=== PATIENT | male | born 1935 | race Caucasian/White ===

== ENCOUNTER 2017-01-27 15:00 | Outpatient (CLI) | payer MEDICARE, OTHER ==
--- NOTE | 2017-01-27 16:33 | Ultrasound Report ---
EXAM: RENAL ULTRASOUND EXAM DATE: 01/27/2017 04:02 PM. CLINICAL HISTORY: ASSESS LESION DEMONSTRATED BY NM STUDY. COMPARISON: CT scan dated 07/20/2011 and ultrasound dated 07/13/2011. TECHNIQUE: Real-time scanning was performed with static images obtained. FINDINGS: Right Kidney: 12.1 x 4.3 x 5.9 cm. Diffusely echogenic renal parenchyma, probably senescent. No hydro nephrosis. Upper pole cyst measuring 1.1 x 0.8 x 1.0 cm. Lower pole cyst measuring 3.0 x 2.3 x 3.0 cm . Left Kidney: 12.5 x 6.1 x 5.9 cm. Diffusely echogenic renal parenchyma, probably senescent. No hydron ephrosis. Upper pole solid lesion measuring 4.2 x 3.7 x 4.3 cm, not significantly changed since 2011. Irregular complex lower pole cyst measuring 1.4 x 1.1 x 1.2 cm. Bladder: Bilateral jets seen. The prevoid bladder volume was 98 cc. The postvoid bladder volume was 3 0 cc. Prominent heterogeneous prostate measuring 5.7 x 4.1 x 4.9 cm. Other: Trace free fluid in right upper quadrant, a nonspecific finding. IMPRESSION: 1. No significant interval change of left renal mass. 2. Senescent changes of both kidneys. Small cysts within both kidneys. 3. Moderate postvoid bladder residual, prominent prostate. [facility] Referring Provider Line: [phone] SITE ID: [id number]
== END 2017-01-27 15:01 | disposition home or self-care (01) ==
LOC: DI 15:00
PROVIDERS: ATTEND Internal Medicine Hematology & Oncology
DX: N28.9 Disorder of kidney and ureter, unspecified (principal)
CPT/HCPCS: 76770

== ENCOUNTER 2017-02-04 08:00 | Outpatient (CLI) | payer MEDICARE, OTHER ==
[2017-02-04 16:41] LABS: BASOPHILS # (AUTO) 0.1 10^3/uL (0.0-0.1); BASOPHILS % (AUTO) 0.9 %; EOSINOPHILS # (AUTO) 0.1 10^3/uL (0.0-0.7); HCT - HEMATOCRIT 37.6 % (42.0-52.0); HGB - HEMOGLOBIN 12.5 g/dL (14.0-18.0); LYMPHOCYTES % (AUTO) 14.2 %; MEAN CORPUSCULAR HEMOGLOBIN 31.1 pg (27.0-31.0); MEAN CORPUSCULAR HGB CONC 33.2 g/dL (32.0-36.0); MEAN CORPUSCULAR VOLUME 93.7 fL (80.0-94.0); MEAN PLATELET VOLUME 8.7 fL (7.4-11.4); MONOCYTES # (AUTO) 0.6 10^3/uL (0.0-1.0); MONOCYTES % (AUTO) 8.8 %; NEUTROPHILS % (AUTO) 75.1 %; RED BLOOD COUNT 4.01 10^6/uL (4.70-6.10); RED CELL DISTRIBUTION WIDTH 15.8 % (12.0-15.0); UNCORRECTED WHITE BLOOD COUNT 6.7 x10^3/uL; WHITE BLOOD COUNT 6.7 x10^3/uL (4.8-10.8)
[2017-02-04 16:54] LABS: INR 4.2 (0.8-1.2); PT - PROTHROMBIN TIME 48.2 secs (9.9-12.6)
[2017-02-04 16:56] LABS: CALCIUM 8.9 mg/dL (8.5-10.3); CREATININE 0.9 mg/dL (0.6-1.2)
[2017-02-04 17:01] LABS: PARTIAL THROMBOPLASTIN TIME 40.2 secs (24.9-33.3)
== END 2017-02-04 08:01 | disposition home or self-care (01) ==
LOC: LAB 08:00
PROVIDERS: ATTEND Specialist
DX: K92.1 Melena (principal)
CPT/HCPCS: 36415; 80048; 85025; 85610; 85730

== ENCOUNTER 2017-02-04 16:07 | Outpatient (CLI) | payer MEDICARE, OTHER | END 2017-02-04 16:08 | disposition home or self-care (01) | LOC: LAB 16:07 | PROVIDERS: ATTEND Specialist | DX: K92.1 Melena (principal) ==

== ENCOUNTER 2017-02-23 06:15 | Emergency (ER) | payer MEDICARE, OTHER ==
[2017-02-23] MEDS ORDERED: OXYMETAZOLINE NASAL SPRAY NAS STA (07:06)
--- NOTE | 2017-02-23 07:08 | ED Physician Documentation ---
PD HPI HEENT - Stated complaint Stated Complaint: NOSE BLEED - Chief complaint Chief Complaint: Heent - History obtained from History obtained from: Patient - History of Present Illness Timing - onset: Today (when awoke) Timing - duration: Hours (1) Timing - details: Abrupt onset, Still present Location: Nose Associated symptoms: No: Fever, Congestion, Rhinorrhea, Swollen nodes Similar symptoms before: No diagnosis (had brief bleeding a few days ago, then stopped. No recent URI symptoms.) Recently seen: Not recently seen Review of Systems Constitutional: denies: Fever, Chills Nose: denies: Rhinorrhea / runny nose, Congestion Throat: denies: Sore throat Respiratory: denies: Dyspnea, Cough PD PAST MEDICAL HISTORY - Past Medical History Cardiovascular: Hypertension, High cholesterol, Deep vein thrombosis GI: GERD Musculoskeletal: Gout - Past Surgical History Past Surgical History: Yes Ortho: Carpal Tunnel surgery - Present Medications Home Medications: Ambulatory Orders Medication Instructions Recorded Confirmed Doxazosin [Cardura] 8 mg PO DAILY 07/16/14 02/23/17 Losartan Potassium 50 mg PO BID 07/16/14 02/23/17 Simvastatin 40 mg PO DAILY 07/16/14 02/23/17 Warfarin Sodium [Jantoven] 5 mg PO DAILY 07/16/14 02/23/17 raNITIdine [Zantac] 300 mg PO DAILY 07/16/14 02/23/17 Furosemide 20 mg PO DAILY 02/23/17 02/23/17 Levothyroxine [Synthroid] 175 mcg PO QDAC 02/23/17 02/23/17 - Allergies Allergies/Adverse Reactions: Allergies Allergy/AdvReac Type Severity Reaction Status Date / Time No Known Drug Allergies Allergy Verified 02/23/17 06:37 - Social History Does the pt smoke?: Yes Smoking Status: Current every day smoker Does the pt drink ETOH?: Yes Does the pt have substance abuse?: No - Immunizations Immunizations are current?: Yes - POLST Patient has POLST: No PD ED PE NORMAL - Vitals Vital signs reviewed: Yes - General General: Alert and oriented X 3, No acute distress, Well developed/nourished - HEENT HEENT: Pharynx benign, Other (mild bleeding right nostril even with pinching. ) - Neck Neck: Supple, no meningeal sign, No adenopathy - Derm Derm: Normal color, Warm and dry - Neuro Neuro: Alert and oriented X 3, No motor deficit, Normal speech Results - Vitals Vitals: Oxygen O2 Source Room air - Labs Labs: Laboratory Tests 02/23/17 07:14 Whole Blood INR 3.3 H Procedures - Epistaxis Site: Right, Anterior Preparation: Clots removed, Afrin, Lidocaine, Clamp / pressure applied Treatment: Silver Nitrate, Packing inserted Other: Observed - no bleeding, Pt tolerated well, O2 sat WNL PD MEDICAL DECISION MAKING - ED course Complexity details: re-evaluated patient (no further bleeding, and he feels okay. ), d/w patient Departure - Departure Disposition: Home, Self Care Clinical Impression: Anticoagulant long-term use, Right-sided nosebleed Condition: Stable Record reviewed to determine appropriate education?: Yes Instructions: ED Nasal Packing Anterior Removable Follow-Up: Melodie Rollins PA-C [Primary Care Provider] - Comments: Leave the packing in the nostril through the day today and into tomorrow if you can. Remove it gently by pulling easily. Stay well-hydrated. If there is some bleeding, then apply the nose clamp while still keeping the packing in. Return if bleeding despite that. Hold your Coumadin dose tonight and then continue normally after that. Discharge Date/Time: 02/23/17 08:52
[2017-02-23] MEDS ORDERED: OXYMETAZOLINE NASAL SPRAY NAS ONE (07:13)
[2017-02-23 08:52] VITALS: BP 138/71
== END 2017-02-23 08:52 | disposition home or self-care (01) ==
LOC: ED 06:15
DX: R04.0 Epistaxis (principal); I10 Essential (primary) hypertension; F17.200 Nicotine dependence, unspecified, uncomplicated; Z86.718 Personal history of other venous thrombosis and embolism; Z79.01 Long term (current) use of anticoagulants
CPT/HCPCS: 30901; 85610; 99282; 99283; A9270

== ENCOUNTER 2017-03-13 08:16 | Day surgery (SDC) | payer MEDICARE, OTHER ==
[2017-03-13] MEDS ORDERED: LACTATED RINGERS 1,000 ML IV ONE (08:31)
[2017-03-13] MEDS ORDERED: MIDAZOLAM 2 MG/2 ML VIAL IVP ONE (10:32)
[2017-03-13] MEDS ORDERED: fentaNYL 100 MCG/2 ML VIAL IVP ONE (10:32)
[2017-03-13 11:38] VITALS: BP 105/58
== END 2017-03-13 08:17 | disposition home or self-care (01) ==
LOC: SDS 08:16
PROVIDERS: ATTEND Surgery
PROC: 0DBH8ZX Excision of Cecum, Via Natural or Artificial Opening Endoscopic, Diagnostic (ICD-10-PCS; principal; 2017-03-13 09:30)
DX: K62.5 Hemorrhage of anus and rectum (principal); D12.0 Benign neoplasm of cecum; K57.90 Diverticulosis of intestine, part unspecified, without perforation or abscess without bleeding; Z95.0 Presence of cardiac pacemaker; Z79.01 Long term (current) use of anticoagulants; Z86.73 Personal history of transient ischemic attack (TIA), and cerebral infarction without residual deficits; F17.210 Nicotine dependence, cigarettes, uncomplicated; E78.00 Pure hypercholesterolemia, unspecified
CPT/HCPCS: 45380; J7120; 88305

== ENCOUNTER 2017-03-29 13:07 | Emergency (ER) | payer MEDICARE, OTHER ==
--- NOTE | 2017-03-29 14:14 | ED Physician Documentation ---
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 He has had intermittent abdominal pain in the upper abdomen with a bulge that really was not bothering him until it became severe at 11 AM this morning not associated with vomiting or difficulty with bowel movements.) Review of Systems Ten Systems: 10 systems reviewed and negative Constitutional: denies: Fever, Chills Cardiac: denies: Chest pain / pressure, Palpitations Respiratory: denies: Dyspnea, Cough PD PAST MEDICAL HISTORY - Past Medical History Cardiovascular: Hypertension, High cholesterol, Deep vein thrombosis, Other Respiratory: None Endocrine/Autoimmune: Other GI: GERD, Hemorrhoids : None HEENT: Other Psych: Depression Musculoskeletal: Gout Derm: None - Past Surgical History Past Surgical History: Yes General: Colonoscopy Ortho: Carpal Tunnel surgery - Present Medications Home Medications: Ambulatory Orders Medication Instructions Recorded Confirmed Doxazosin [Cardura] 8 mg PO DAILY 07/16/14 03/29/17 Losartan Potassium 50 mg PO BID 07/16/14 03/29/17 Simvastatin 40 mg PO DAILY 07/16/14 03/29/17 Warfarin Sodium [Jantoven] 5 mg PO DAILY 07/16/14 03/29/17 raNITIdine [Zantac] 300 mg PO DAILY 07/16/14 03/29/17 Furosemide 20 mg PO DAILY 02/23/17 03/29/17 Levothyroxine [Synthroid] 175 mcg PO QDAC 02/23/17 03/29/17 Warfarin [Coumadin] 2.5 mg PO 1400 03/10/17 03/29/17 - Allergies Allergies/Adverse Reactions: Allergies Allergy/AdvReac Type Severity Reaction Status Date / Time No Known Drug Allergies Allergy Verified 03/13/17 08:39 - Social History Does the pt smoke?: Yes Smoking Status: Current every day smoker Does the pt drink ETOH?: Yes Does the pt have substance abuse?: No - Immunizations Immunizations are current?: Yes - POLST Patient has POLST: No PD ED PE NORMAL - Vitals Vital signs reviewed: Yes - General General: Alert and oriented X 3, No acute distress - HEENT HEENT: PERRL, EOMI - Neck Neck: No bony TTP, No bruit - Cardiac Cardiac: RRR, No murmur - Respiratory Respiratory: No respiratory distress, Clear bilaterally - Abdomen Abdomen: Other (Soft, no diffuse tenderness, normal bowel tones. He does have a palpable ventral hernia which was deep and small and tender but I believe I was able to reduce it during examination.) - Back Back: No CVA TTP, No spinal TTP - Derm Derm: Normal color, Warm and dry - Extremities Extremities: No edema, No calf tenderness / cord - Neuro Neuro: Alert and oriented X 3, Normal speech - Psych Psych: Normal mood, Normal affect Results - Vitals Vitals: Vital Signs - 24 hr 03/29/17 03/29/17 13:21 15:06 Temperature 36.6 C 36.1 C L Heart Rate 71 59 L Respiratory 18 16 Rate Blood Pressure 151/90 H 145/82 H O2 Saturation 98 96 Oxygen O2 Source Room air - Labs Labs: Laboratory Tests 03/29/17 03/29/17 03/29/17 14:23 14:23 14:23 WBC 6.0 RBC 3.96 L Hgb 12.4 L Hct 36.9 L MCV 93.0 MCH 31.2 H MCHC 33.6 RDW 15.8 H Plt Count 116 L MPV 9.2 Neut # 4.6 Lymph # 0.7 L [place] # 0.6 Eos # 0.1 Baso # 0.1 Absolute Nucleated RBC 0.00 Nucleated RBC % 0.1 PT 48.4 H INR 4.3 H Sodium 142 Potassium 3.8 Chloride 105 Carbon Dioxide 27 Anion Gap 10.0 BUN 21 H Creatinine 0.8 Estimated GFR (MDRD) 93 Glucose 95 Calcium 8.5 PD MEDICAL DECISION MAKING - ED course ED course: I believe I was able to reduce his ventral hernia during examination. Labs were done and demonstrated an INR of 4.3. On recheck he was having recurrent pain and I was able to reduce the hernia again. I spoke with Dr. Cavanaugh, the on-call surgeon by phone who felt that he did not need an emergent repair, and that he could be discharged with instructions to lift no weight and follow-up in clinic for coordinated approach since he will need bridging therapy etc. Departure - Departure Disposition: 01 Home, Self Care Clinical Impression: Supratherapeutic international normalized ratio (INR) Ventral hernia Qualifiers: Obstruction and gangrene presence: without obstruction or gangrene Qualified Code(s): K43.9 - Ventral hernia without obstruction or gangrene Condition: Good Record reviewed to determine appropriate education?: Yes Follow-Up: KRYSTAL MATOS MD [Provider Admit Priv/Credential] - Comments: Stop your warfarin for the next 2 days. Recheck with your physician on Monday for that and a referral to a local surgeon. Return if worse. Do not lift anything. Your blood pressure was elevated today on check into the emergency department. This does not mean that you have hypertension, it is a common phenomenon to come to the emergency department and have elevated blood pressure. I recommend that she see your primary care physician within the week to have it rechecked when you are feeling better.
[2017-03-29 14:37] LABS: BASOPHILS # (AUTO) 0.1 10^3/uL (0.0-0.1); BASOPHILS % (AUTO) 0.9 %; EOSINOPHILS # (AUTO) 0.1 10^3/uL (0.0-0.7); EOSINOPHILS % (AUTO) 1.2 %; HCT - HEMATOCRIT 36.9 % (42.0-52.0); HGB - HEMOGLOBIN 12.4 g/dL (14.0-18.0); LYMPHOCYTES # (AUTO) 0.7 10^3/uL (1.5-3.5); LYMPHOCYTES % (AUTO) 12.1 %; MEAN CORPUSCULAR HEMOGLOBIN 31.2 pg (27.0-31.0); MEAN CORPUSCULAR HGB CONC 33.6 g/dL (32.0-36.0); MEAN PLATELET VOLUME 9.2 fL (7.4-11.4); MONOCYTES # (AUTO) 0.6 10^3/uL (0.0-1.0); MONOCYTES % (AUTO) 9.8 %; NEUTROPHILS # (AUTO) 4.6 10^3/uL (1.5-6.6); NUCLEATED RED BLOOD CELLS AUTO 0.1 /100WBC; RED BLOOD COUNT 3.96 10^6/uL (4.70-6.10); RED CELL DISTRIBUTION WIDTH 15.8 % (12.0-15.0)
[2017-03-29 14:45] LABS: INR 4.3 (0.8-1.2); PT - PROTHROMBIN TIME 48.4 secs (9.9-12.6)
[2017-03-29 14:48] LABS: CALCIUM 8.5 mg/dL (8.5-10.3); CREATININE 0.8 mg/dL (0.6-1.2); POTASSIUM 3.8 mmol/L (3.5-5.0)
[2017-03-29 15:07] VITALS: BP 145/82
== END 2017-03-29 15:36 | disposition home or self-care (01) ==
LOC: ED 13:07
DX: K43.9 Ventral hernia without obstruction or gangrene (principal); I10 Essential (primary) hypertension; E78.00 Pure hypercholesterolemia, unspecified; Z86.718 Personal history of other venous thrombosis and embolism; Z79.01 Long term (current) use of anticoagulants; F17.200 Nicotine dependence, unspecified, uncomplicated; K21.9 Gastro-esophageal reflux disease without esophagitis
CPT/HCPCS: 36415; 80048; 85025; 85610; 99283

== ENCOUNTER 2017-05-12 08:00 | Day surgery (SDC) | payer MEDICARE, OTHER ==
[2017-05-12] MEDS ORDERED: ceFAZolin 2 GM/50 ML 2 GM/50 ML BAG IV ONE (08:09)
[2017-05-12] MEDS ORDERED: LACTATED RINGERS 1,000 ML IV ONE (08:10)
[2017-05-12] MEDS ORDERED: BUPIVACAINE 0.25%-EPI 1:200000 PF 30 ML VIAL SUBQ ONE ×2 (10:34)
[2017-05-12] MEDS ORDERED: SUCCINYLCHOLINE 200 MG/10 ML VIAL IVP ONE (10:45)
[2017-05-12] MEDS ORDERED: ONDANSETRON 4 MG/2 ML VIAL IVP ONE (10:45)
[2017-05-12] MEDS ORDERED: LIDOCAINE-MPF 2% 5 ML VIAL IM ONE (10:45)
[2017-05-12] MEDS ORDERED: MIDAZOLAM 2 MG/2 ML VIAL IVP ONE (10:45)
[2017-05-12] MEDS ORDERED: NEOSTIGMINE 1 MG/1 ML 10 ML MDV IVP ONE (10:45)
[2017-05-12] MEDS ORDERED: PROPOFOL 200 MG/20 ML VIAL IVP ONE (10:45)
[2017-05-12] MEDS ORDERED: ROCURONIUM 50 MG/5 ML VIAL IVP ONE (10:45)
[2017-05-12] MEDS ORDERED: fentaNYL 100 MCG/2 ML VIAL IVP ONE (10:45)
[2017-05-12] MEDS ORDERED: ePHEDrine 50 MG/ML VIAL IVP ONE (10:45)
[2017-05-12] MEDS ORDERED: GLYCOPYRROLATE 1 MG/5 ML VIAL IVP ONE (10:45)
[2017-05-12] MEDS: fentaNYL 100 MCG/2 ML VIAL ONE ×3 (12:05→12:29)
[2017-05-12] MEDS ORDERED: HYDROcod/ACETAM 5/325 MG TABLET ONE (13:07)
[2017-05-12 14:02] VITALS: BP 112/64
[2017-05-12 14:06] LABS: CC,BF RBC 10969 /mm^3
[2017-05-12 14:07] LABS: BASOPHILS %,BODY FLUID 1 %; LYMPHOCYTES %,BODY FLUID 36; MACROPHAGES %,BODY FLUID 27 %; MESOTHELIAL %, BF 5 %; MONOCYTES %,BODY FLUID 5 %
[2017-05-12 14:08] LABS: BF COLOR PINK; BF SOURCE PERITONIAL
--- NOTE | 2017-05-15 10:16 | OPERATIVE REPORT ---
DATE OF SURGERY: 05/12/2017 00:00:00 PREOPERATIVE DIAGNOSIS: Incarcerated ventral incisional hernia. POSTOPERATIVE DIAGNOSES 1. Incarcerated ventral incisional hernia. 2. Ascites of unknown cause. 3. Right direct inguinal hernia. OPERATION PERFORMED 1. Repair of incarcerated ventral incisional hernia with mesh. 2. Diagnostic laparoscopy with liver biopsy. SURGEON: Osmany Cavanaugh MD ANESTHESIA: General; Kvng Linda CRNA. INDICATIONS FOR PROCEDURE: The patient is a 81-year-old male who had a previous laparoscopy for a hiatal hernia surgery. He now has a bulge being present in the area of the incision near the midline. On physical exam, he has an incarcerated ventral incisional hernia. FINDINGS AT SURGERY: Patient had an incarcerated ventral incisional hernia with the defect measuring approximately 1.5 cm containing omentum. This was repaired with Proceed round hernia mesh. The patient had 1800 mL of serous ascites being present. The liver did appear to be boggy and slightly larger than normal but did not appear to be cirrhotic. He had a direct right inguinal hernia being present. PROCEDURE: After informed consent was obtained, the patient was taken to the operating room and placed in supine position. General anesthesia was administered. The patient's abdomen was then prepped and draped in the usual sterile fashion. Prior to making the skin incision, the skin was injected with local anesthesia. An incision was then made in the skin near the midline where the hernia had been marked on the skin preoperatively. Incision was then deepened down to the hernia sac, which was then dissected free from the surrounding structures. The hernia sac was then entered, with it containing omentum. This was then reduced. The hernia sac was then excised. Patient was found to have serous ascites being present. A suction tip was then placed intraabdominally, and 800 mL of fluid was then aspirated. Due to possibility of cirrhosis and having the patient under anesthesia, I decided to do a laparoscopy with a liver biopsy. This is needed in order to help diagnose what is causing the ascites. In my opinion, this was the best course to proceed with. A Camryn trocar was then inserted through the hernia defect and intraabdominally with the abdomen then being insufflated. A 5 mm port was then placed in the midline. A small incision was made in the skin in the right upper quadrant, and a Malik-Cut needle was then introduced through this incision and into the abdomen under direct vision. A liver biopsy was then obtained using the Malik-Cut needle. Hemostasis was obtained using electrocautery. The right upper quadrant was thoroughly irrigated until the return fluid was clear. The Camryn trocar was then removed. A Proceed round mesh was then placed intraabdominally. The tissue had been dissected around the fascial defect for at least 2 cm; 0 PDS sutures were then placed through the fascia, through the tab of the round hernia mesh in a U-stitch fashion, and then out through the fascia. This was done for the superior and inferior flaps of the mesh. The straps were then divided near where it was attached to the circular piece of mesh distal to the suture. The anterior fascial layer was then closed transversely using interrupted 0 PDS sutures. The abdomen was then insufflated, and looking inside, the mesh appeared to be in good position. The abdomen was then desufflated and the 5 mm port removed. The subcutaneous tissue was closed using 3-0 Vicryl suture, skin incisions were closed using 4-0 Monocryl subcuticular stitch. Dermabond was then applied. The patient was then awakened, extubated, and taken from the operating room in stable condition. ESTIMATED BLOOD LOSS: 10 mL. COMPLICATIONS: None. CONDITION OF THE PATIENT AT END OF PROCEDURE: Stable. SPECIMENS: Ascitic fluid for various labs. Liver biopsy and hernia sac. DRAINS/PACKS: None. CLASSIFICATION OF WOUND: Clean. JOB #: [id number] EXT JOB #:[id number] MTDD
== END 2017-05-12 08:01 | disposition home or self-care (01) ==
LOC: SDS 08:00
PROVIDERS: ATTEND Surgery
PROC: 0WUF0JZ Supplement Abdominal Wall with Synthetic Substitute, Open Approach (ICD-10-PCS; principal; 2017-05-12 09:15)
PROC: 0FB04ZX Excision of Liver, Percutaneous Endoscopic Approach, Diagnostic (ICD-10-PCS; 2017-05-12 09:15)
DX: R18.8 Other ascites (principal); K40.90 Unilateral inguinal hernia, without obstruction or gangrene, not specified as recurrent; K75.9 Inflammatory liver disease, unspecified; Z95.0 Presence of cardiac pacemaker; I48.91 Unspecified atrial fibrillation; I10 Essential (primary) hypertension; Z86.718 Personal history of other venous thrombosis and embolism; Z79.01 Long term (current) use of anticoagulants; K21.9 Gastro-esophageal reflux disease without esophagitis
CPT/HCPCS: 47379; 49561; 49568; 87070; 87205; 89051; A9270; J0690; J7120; 81599

== ENCOUNTER 2017-05-26 15:00 | Outpatient (CLI) | payer MEDICARE, OTHER ==
--- NOTE | 2017-05-26 20:22 | Ultrasound Report ---
ABDOMEN ULTRASOUND, LIMITED: 05/26/2017 No direct comparison. INDICATION: Ascites. Liver congestion. 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 TECHNIQUE: Real-time scanning was performed with personal service representative static images obtained. FINDINGS: The liver is large measuring 21 cm. The liver appears normal in contour without masses. Hepatic veins and portal veins appear grossly patent. There is hepatopetal flow. Abdominal ascites is noted. Minimal focal gallbladder wall thickening may represent early polyps. The gallbladder appears otherwise unremarkable. The common duct measures 6 mm. Right kidney: 11.2 cm. IMPRESSION: ASCITES AND HEPATOMEGALY ARE NOTED. HEPATIC VEINS AND PORTAL VEINS APPEAR PATENT. JOB #: [id number] EXT JOB #: [id number]
== END 2017-05-26 15:01 | disposition home or self-care (01) ==
LOC: DI 15:00
PROVIDERS: ATTEND Surgery
DX: R18.8 Other ascites (principal); R16.0 Hepatomegaly, not elsewhere classified
CPT/HCPCS: 76705